=== PATIENT | female | born 1940 | race Two or more races ===

== ENCOUNTER → 2024-12-17 | Outpatient (CLI) | payer SELFPAY ==
[2024-12-17 21:55] LABS: Mucous, Urine 0 SEEN /hpf (<or=2+); Squamous Epithelial Cells - UA 0 SEEN /hpf (5-10)
[2024-12-17 23:00] LABS: Color, Urine Yellow (Yellow); Glucose, Dipstick 1000 mg/dl (Normal); Ketone-Dipstick Negative (Negative); Leukocyte Esterase-Dipstick 100 /ul (Negative); Nitrite-Dipstick Positive (Negative); Occult Blood-Urine 150 /ul (Negative); Protein-Dipstick 30 mg/dl (Negative); Specific Gravity, Urine 1.015 (1.002-1.030); Urine Bilirubin Dipstick Negative (Negative); Urine Clarity Cloudy (Clear); Urine Urobilinogen Normal (Normal)
[2024-12-17 23:37] LABS: Amorphous Sediment 2+; Bacteria 2+ /hpf (None Seen); Red Blood Cells-Urine 5-10 SEEN /hpf (0-5); Uric Acid Crystals Ur 1+ /hpf (<or=1+); White Blood Cells 5-10 SEEN /hpf (0-5)
--- OUTSIDE RECORDS SUMMARY | 2025-07-06 16:57 | XMS RPT_ITS | CCD ---
Author Organization [facility] Inform ion Partnership [facility] Care Team Providers Care Hand Candy Molder Name Role Phone Ivonne Malik Referring Unavailable Ivonne Malik Attending Unavailable Results Test Name Value Interpretation Reference Range [facility] Urine Cultureon 12-20-2024 [facility] Escherichia coli [place] Count >100,000 Escherichia coli: REACTION Ampicillin Islt ALIX >=32 Ampicillin+Sulbac Islt ALIX >=32 R Cefepime Islt ALIX <=0.12 S cefTRIAXone Islt ALIX <=0.25 S Ciprofloxacin Islt ALIX 0.5 I B-Lactamase Extended Susc Islt NEG Gentamicin Islt ALIX <=1 S levoFLOXacin Islt ALIX 1 I Meropenem Islt ALIX <=0.25 S Nitrofurantoin Islt ALIX <=16 S Pip+Tazo Islt ALIX 16 I TMP SMX Islt ALIX <=20 S Normal [facility] Comment on above: Performed By: #### M 100.2200, [id number] #### [facility] [address] [place], [address] Urinalysis, Completeon 12-17 AMORPHOUS 2+ Normal [facility] Comment on above: Order Comment: Urine , Random Performed By: #### M 100.2200, [id number] #### [facility] [address] [place], [address] BACTERIA 2+ /hpf Normal None Seen [facility] Comment on above: Order Comment: Urine , Random Performed By: #### M 100.2200, [id number] #### [facility] [address] [place], [address] RBC 5-10 SEEN Normal 0-5 [facility] Comment on above: Order Comment: Urine , Random Performed By: #### M 100.2200, [id number] #### [facility] [address] [place], [address] URIC CRYSTALS 1+ /hpf Normal [facility] Comment on above: Order Comment: Urine , Random Performed By: #### M 100.2200, [id number] #### [facility] [address] [place], [address] WBC 5-10 SEEN Normal 0-5 [facility] Comment on above: Order Comment: Urine , Random Performed By: #### M 100.2200, [id number] #### [facility] [address] [place], [address] EPI,SQUAMOUS 0 SEEN Normal 5-10 [facility] Comment on above: Order Comment: Urine , Random Performed By: #### M 100.2200, [id number] #### [facility] [address] [place], [address] Mucus Ql (Urine sed) [address] [facility] Comment on above: Order Comment: Urine , Random Performed By: #### M 100.2200, [id number] #### [facility] [address] [place], [address] Encounters Encounter Date Encounter Type Care Provider Facility Start: 12-17-2024 [facility] Facility:[facility] Payers Date Payer Category Payer Self-pay Unknown [id number] Summary Purpose Family History No Family History Records Found Advance Directives No Advanced Directives Records Found Additional Source Comments INFORMATION SOURCE (unrecogn ized section and content) DATE CREATED AUTHOR 01/26/2025 [facility] FOR RECORDS PERTAINING TO PATIENTS WHO ARE OR HAVE BEEN ENROLLED IN A CHEMICAL DEPENDENCY/SUBSTANCEABUSE PROGRAM, SOME INFORMATION MAY BE OMITTED. This clinical summary was aggregated from multiple sources. Caution should be exercised in using it in the provision of clinical care. This summary normalizes information from multiple sources, and as a consequence, information in this document may materially change the coding, format and clinical context of patient data. In addition, data may be omitted in some cases. CLINICAL DECISIONS SHOULD BE BASED ON THE PRIMARY CLINICAL RECORDS. [employer] [facility]. provides no warranty or guarantee of the accuracy or completeness of information in this document.
== END | disposition home or self-care (01) ==
LOC: LABSPEC 07-06 11:50
PROVIDERS: Referring Provider Family Medicine; Visit Provider Family Medicine
DX: N39.0 Urinary tract infection, site not specified (principal)
CPT/HCPCS: 81001; 87077; 87086; 87088; 87186